=== PATIENT | male | born 1970 | race Caucasian/White ===

== ENCOUNTER → 2021-10-27 08:45 | Outpatient (BNVA) | payer OTHER, SELFPAY | PROVIDERS: PCP Internal Medicine; Visit Provider Anesthesiology ==

== ENCOUNTER 2022-10-04 07:24 | Outpatient (REF) | payer OTHER, SELFPAY ==
[2022-10-04 08:08] LABS: COVID-19 Test Positive (Negative); IDNOW Serial# 9DB6401D
== END 2022-10-04 07:25 | disposition home or self-care (01) ==
LOC: HO.LAB 07:24
PROVIDERS: Visit Provider Internal Medicine
DX: Z20.822 Contact with and (suspected) exposure to COVID-19 (principal)
CPT/HCPCS: 87635; C9803

== ENCOUNTER 2024-05-02 18:49 | Emergency (ER) | payer OTHER, SELFPAY ==
[2024-05-02 19:18] VITALS: BP 172/101; PULSE 89; RESP 16; TEMP 37.3; O2SAT 97; BMI 38.3
--- NOTE | 2024-05-02 19:18 | ED_ITS ---
HPI - Extremity Injury (Upper) General Chief Complaint: Extremity Problem Stated Complaint: shoulder/ arm pain, needs cortisone shot? Time Seen by Provider: 05/02/24 19:26 Source: patient Mode of arrival: ambulatory Limitations: no limitations History of Present Illness HPI narrative: Patient is a 53-year-old male who presents to the emergency department for evaluation of L shoulder/ arm pain. Saw PCP 2 days ago, has XR obtained which revealed mild narrowing of the glenohumeral joint space and prescribed prednisone. Pain made worse with overhead extension, mild pain with external rotation. Reports that his PCP was going to refer him for a cortisone injection either with Orthopedics or physiatry but did not place these orders before leaving the office today. Requesting cortisone injection here today. Denies numbness tingling or cold sensation to the extremity or hand. Related Data Home Medications ?Medication ?Instructions ?Recorded ?Confirmed ibuprofen 800 mg tablet 800 mg PO TID 10/27/21 lorazepam 0.5 mg tablet 0.5 mg PO TID PRN 10/27/21 phentermine 37.5 mg tablet 37.5 mg PO BEDTIME 10/27/21 quetiapine 25 mg tablet 0 mg PO 10/27/21 Allergies Allergy/AdvReac Type Severity Reaction Status Date / Time No Known Allergies Allergy Verified 05/02/24 19:19 Review of Systems Review of Systems: Yes all other systems are reviewed and are negative PMFSH Past Medical History Attestation statement: The following information was validated with the patient. Source: old records reviewed Medical History Morbid obesity Spondylosis, lumbar, with myelopathy Sacroiliitis Vitamin D deficiency Hyperlipidemia Anxiety Depression Lumbago BRE (obstructive sleep apnea) Obesity Fatty liver Globus sensation Dysphagia Surgical History Status post gastric surgery Physical Exam Vital Signs: Vital Signs: Last Vital Signs Temp 99.1 F 05/02/24 19:18 Pulse 89 05/02/24 19:18 Resp 16 05/02/24 19:18 BP 172/101 H 05/02/24 19:18 Pulse Ox 97 05/02/24 19:18 O2 Del Method Room Air 05/02/24 19:18 BMI result Body Mass Index 38.3 Appearance: Alert.?Oriented to person, place and time. No acute distress.?Normal affect.? Neck: Normal inspection.? Neck supple.?? CVS: Heart sounds normal. Normal heart rate and rhythm.? Pulses normal.?? Respiratory: No respiratory distress.? Lung sounds clear to auscultation bilaterally?? Skin: Skin warm and dry.? Normal skin color.? Normal skin turgor.?? Extremities: Left upper extremity with decreased AROM for overhead extension, able to externally rotate, no palpable deformity. 2+ radial pulse Neuro: Moves all extremities spontaneously. Sensation intact bilaterally. Ambulates with normal steady gait. Medical Decision Making Medical Decision Making MDM Narrative: Patient is a 53-year-old male who presents emergency department for evaluation o f left shoulder pain as per HPI, is undergoing outpatient workup, found to have degenerative changes as per HPI. Overall he appears well. Extremity is neurovascularly intact distally. Has had no recent injury that would suggest requiring a repeat XR aside from his outpatient imaging a couple of days ago. He is currently prescribed prednisone. Patient was advised he will need to follow-up with orthopedics as referred from PCP for cortisone injection. Advised continued use of his prednisone as prescribed, discussed not using this in conjunction with diclofenac which he is prescribed for chronic back pain. He verbalizes understanding of this. At this time he is stable for discharge home. All questions answered. Differential Diagnosis Differential Diagnoses: The differential diagnosis associated with the presentation includes (As noted above) Tests considered The following testing was considered but not selected: See narrative above Prescription Management I considered prescription management with: Pain Medication (See narrative above) Discharge Plan Discharge Clinical Impression: Arthritis of shoulder region, left, degenerative Patient Disposition: Home, Self-Care Instructions: Osteoarthritis (ED) Additional Instructions: As discussed continue taking your medication as prescribed by your primary care provider. I do not recommend taking your chronically prescribed diclofenac in addition to the prednisone. Follow-up with your primary care provider to discuss the referral to Orthopedics/physiatry as they had mentioned to you. You can return back to emergency department any new or worsening symptoms or concerns. Prescriptions: No Action lorazepam 0.5 mg tablet 0.5 mg PO TID PRN ibuprofen 800 mg tablet 800 mg PO TID phentermine 37.5 mg tablet 37.5 mg PO BEDTIME quetiapine 25 mg tablet 0 mg PO Referrals: Hussein Godinez III, MD [Primary Care Provider] - Print Language: Trinidadian
--- OUTSIDE RECORDS SUMMARY | 2024-05-02 19:38 | XMS_ITS | Patient Health Record ---
Author Organization [facility] Address [address] [place] [address] Care Team Providers Care Director Of Operations Support Name Role Phone Hussein Godinez Primary Care Provider Unavailabl e ALLERGIES No Known Allergies REASON FOR REFERRAL No Information MEDICATIONS Medication SIG (Take, Route, Frequency, Duration) Notes Start Date End Date Status Atorvastatin Calcium 20 MG 1 tablet Orally Once a day Active buPROPion HCl ER (XL) 150 MG 1 tablet in the morning Orally Once a day Active Flonase Allergy Relief 50 MCG/ACT 1 spray in each nostril Nasally Once a day Not-Taking Diclofenac Sodium 50 MG 1 tablet as need ed Orally Twice a day Active Ibuprofen 800 MG 1 tablet with food o r milk as needed Orally every 8 hrs Active LORazepam 0.5 MG 1 tablet at bedtime as needed Orally Once a day Active Omeprazole 20 MG 1 capsule 30 minutes before morning meal Orally Once a day Not-Taking Ondansetron 4 MG 1 tablet on the tong ue and allow to dissolve Orally Once a day Not-Taking tiZANidine HCl 4 MG 1 tablet as needed Orally Three times a day Not-Taking PLAN OF TREATMENT Pending Test Test Name Order Date X ray : Foot, left 3v 12/21/2022 Insurance Providers Payer Name Payer Address Payer Phone Subscriber Number Group Number Insured Name Patient Relationship to Insured Coverage Start Date Coverage End Date [employer] [address] [address] [place] [phone] [id number] Jamshid Mcfadden Self - patient is the insured MEDICAL (GENERAL) HISTORY Medical History History ICD Code dysphagia globus sensation nausea and vomiting fatty liver obesity (BMI 30.0-34.9) obstructive sleep apnea moderate lumbago depression anxiety hyperlipidemia vitamin D deficiency + COVID 09/2022 COVID vaccinated X 2 (Moderna) Surgical History Surgery Date(Month/Year) gastric surgery 07/2018
[2024-05-02 19:45] VITALS: BP 172/101; PULSE 89; RESP 16; TEMP 37.3; O2SAT 97
== END 2024-05-02 19:47 | disposition home or self-care (01) ==
PROVIDERS: Emergency Provider Emergency Medicine Emergency Medical Services; PCP Internal Medicine
DX: M19.012 Primary osteoarthritis, left shoulder (principal); M25.512 Pain in left shoulder
CPT/HCPCS: 99282